=== PATIENT | female | born 2000 | race Caucasian/White ===

== ENCOUNTER 2024-06-21 12:28 | Emergency (ER) | payer MEDICAID, SELFPAY ==
--- NOTE | ~2024-06-21 | XR_ITS ---
EXAMINATION: XR CHEST CLINICAL INFORMATION: R rib pain COMPARISON: None available. TECHNIQUE: 2 views of the chest were obtained. FINDINGS: No significant abnormality is noted involving the heart, lungs, mediastinum, bony thorax or soft tissues. XR/XR chest 2V IMPRESSION: Unremarkable chest examination. Electronically signed by: Denis Villanueva MD 06/21/2024 01:31 PM [facility] [place]
--- NOTE | ~2024-06-21 | US_ITS ---
EXAMINATION: US ABDOMEN LIMITED CLINICAL INFORMATION: Right upper quadrant pain. COMPARISON: None available. TECHNIQUE: Real-time imaging of the right upper quadrant abdominal viscera. FINDINGS: PANCREAS: Visualized portions are unremarkable. LIVER: The liver is normal in size. The liver contour is normal. Parenchymal echogenicity is normal. No focal hepatic lesion. There is no intrahepatic biliary duct dilatation seen. GALLBLADDER: The gallbladder is physiologically distended without evidence of stones, sludge, polyps, wall thickening or pericholecystic fluid. COMMON BILE DUCT: Normal in caliber measuring 0.12 cm in diameter. RIGHT KIDNEY: No hydronephrosis. No renal calculi or focal parenchymal lesions. The kidney measures 8.9 cm in maximum dimension. FREE FLUID: None. US/US abdomen limited IMPRESSION: Unremarkable limited ultrasound abdomen. Electronically signed by: Denis Villanueva MD 06/21/2024 02:47 PM EST
[2024-06-21 13:04] VITALS: BP 117/72; PULSE 100; RESP 19; TEMP 36.6; O2SAT 100; BMI 28.3
--- NOTE | 2024-06-21 13:04 | ED.GENADULT ---
HPI - General Adult General Chief complaint: General Medical Stated complaint: R flank pain Time Seen by Provider: 06/21/24 16:44 History of Present Illness HPI narrative: Patient complains of right rib and upper back pain for the last several days, pain is worse with a deep breath, no other chest pain no nausea vomiting, pain is continuous worst with movement She has no palpitations, no nausea vomiting or diarrhea, no dysuria no blood in the urine, no numbness or weakness, pain does not radiate, she is eating normally drinking normally, denies any leg swelling Related Data Previous Rx's ?Medication ?Instructions ?Recorded acetaminophen 500 mg tablet 1,000 mg (2 x 500 mg) PO QID PRN 06/21/24 pain #30 tabs ibuprofen 600 mg tablet 600 mg PO Q6H PRN pain #20 tabs 06/21/24 lorazepam 0.5 mg tablet (Ativan) 0.5 mg PO BID PRN anxiety #10 tabs 06/21/24 Allergies Allergy/AdvReac Type Severity Reaction Status Date / Time No Known Allergies Allergy Verified 06/21/24 13:07 [facility] Past Medical History Source: nursing notes reviewed Social History Social History Advance Directives: No Advance Directives Information Provided: No Do you have a plan to hurt others: No Plan Physical Exam ED Vital Signs: Vital Signs - 24 hr 06/21/24 13:04 06/21/24 16:56 06/21/24 19:06 Temperature 98 F 98.4 F 98.4 F Pulse Rate 100 59 59 Respiratory Rate 19 16 16 Blood Pressure 117/72 95/54 L 95/54 L Pulse Oximetry 100 99 99 Oxygen Delivery Method Room Air Room Air Room Air BMI result Body Mass Index 28.3 General appearance comfortable no distress Head is normocephalic atraumatic Eyes pupils equal round reactive to light extraocular motions are intact Neck is supple and nontender The chest is clear to auscultation bilateral full symmetrical breath sounds Deep breath does produce pain in the right upper back Heart no murmur Chest wall did have some right sub axilla tenderness as well as some right low rib tenderness and right lateral rib tenderness The back there is no focal bony tenderness but there was tenderness subscapular and right upper posterior back, no CVA tenderness Extremities full range of motion times Skin no rashes Neuro gait balance are normal, motor is 5/5 x4, sensation intact and symmetrical, interaction comprehension and expression are normal, cranial nerves 2-12 intact as tested Course Course Course Narrative: 23 yo female with no PMH no OCPs, no recent travel or procedures, no trauma to the chest wall, mild recent URI with cough pain x 1 month on and off not get better. Had xray recently at [facility] before [facility] was told it was a muscle but it is not getting better. At this time basic labs, CXR, EKG, ddimer pleuritic pain HR > 105, has mild RUQ pain limited abd US ordered. No risk factors for ACS, or PE this is a RAPID medical screening exam the rest of the history and physical exam is to be done by the main provider. Patient with reproducible right upper back and lateral rib discomfort reproduced with movement and palpation EKG was sinus rhythm rate 66 with short AL of 108, QT was normal, no acute ischemic change Chest x-ray was normal Right upper quadrant ultrasound was normal with no evidence of gallstones or cholecystitis Hematology CBC was normal D-dimer was normal at 01:50, troponin was 2.7 normal, chemistry was without significant abnormality Well-appearing patient with reproducible pain is discharge diagnosis muscle pain, possible costochondritis Medications Administered Discontinued Medications Generic Name Dose Route Start Last Admin Trade Name Freq PRN Reason Stop Dose Admin Acetaminophen 975 mg 06/21/24 18:50 06/21/24 19:04 Acetaminophen 325 Mg Tablet PO 06/21/24 18:51 975 mg ONCE ONE Administration Ketorolac Tromethamine 30 mg 06/21/24 18:50 06/21/24 19:02 Ketorolac Tromethamine 30 Mg/Ml Vial IM 06/21/24 18:51 30 mg ONCE ONE Administration Lorazepam 1 mg 06/21/24 18:50 06/21/24 19:05 Lorazepam 1 Mg Tablet PO 06/21/24 18:51 1 mg ONCE ONE Administration Medical Decision Making Lab Data MDM Lab Attestation statement: I reviewed the patient's lab results. 06/21/24 14:04 06/21/24 14:04 Labs: Lab Results 06/21/24 06/21/24 Range/Units 14:04 17:47 WBC 5.8 (4.8-10.8) X10*3/uL RBC 4.14 L (4.20-5.50) X10*6/uL Hgb 12.9 (12.0-16.0) g/dl Hct 37.3 (37.0-47.0) % MCV 90.1 (80.0-98.0) fL MCH 31.2 (27.0-33.0) pg MCHC 34.6 (31.0-35.0) g/dl RDW 12.3 (11.0-16.0) % Plt Count 254 (160-400) X10*3/uL MPV 10.4 (9.4-12.3) fL Immature Gran % (Auto) 0.2 (0.0-0.4) % Neut % (Auto) 58.2 (45-73) % Lymph % (Auto) 32.9 (20-40) % [place] % (Auto) 7.1 (2-11) % Eos % (Auto) 0.9 (0-4) % Baso % (Auto) 0.7 (0-2) % Lymph # (Auto) 1.9 (1.2-4.9) X10*3/uL [place] # (Auto) 0.4 (0.1-1.2) X10*3/uL Eos # (Auto) 0.1 (0.0-0.4) X10*3/uL Baso # (Auto) 0.0 (0.0-0.2) X10*3/uL Abs Immat Gran (auto) 0.01 (0.00-0.03) X10*3/uL Absolute Neuts (auto) 3.4 (2.0-8.3) x10*3/uL Absolute Nucleated RBC 0.000 (0.0-0.012) X10*3/uL Nucleated RBC % (auto) 0.0 (0.0-0.2) /100WBC D-Dimer High Sensitivty < 150 NG/ML Sodium 140 (135-145) mmol/L Potassium 4.1 (3.3-5.1) mmol/L Chloride 113 H (96-108) mmol/L Carbon Dioxide 22 (22-29) mmol/L Anion Gap 9 L (12-20) BUN 14 (9-16) mg/dL Creatinine 0.79 (0.5-1.4) mg/dL Estim Creat Clear Calc 91.2 Estimated GFR > 60 Random Glucose 96 (60-115) mg/dL Calcium 9.1 (8.4-10.2) mg/dL Magnesium 1.8 (1.6-2.6) mg/dL Total Bilirubin 1.1 H (0.0-1.0) mg/dL Direct Bilirubin 0.4 (0.0-0.5) mg/dL AST 20 (5-31) U/L ALT 17 (0-31) U/L Alkaline Phosphatase 52 (39-117) U/L Troponin I High Sens < 2.7 (<3.5-17.0) ng/L Total Protein 6.8 (6.5-8.0) g/dL Albumin 4.2 (3.5-5.0) g/dL Lipase 9 (8-78) U/L Beta HCG, Quant < 2 mIU/mL Urine Color Dark Yellow Urine Appearance Cloudy Urine pH 6.0 (5.0-9.0) Ur Specific [place] 1.025 (1.005-1.025) Urine Protein Trace (Neg-Trace) mg/dL Urine Glucose (UA) Negative (Negative) mg/dL Urine Ketones Trace (Negative) mg/dL Urine Blood Negative (Negative) Urine Nitrite Negative (Negative) Ur Leukocyte Esterase Small (1+) H (Negative) Urine RBC 0-2 (0-2) /HPF Urine WBC 0-5 (0-5) /HPF Ur Squamous Epith Cells >20 (0-2) /HPF Urine Bacteria 4+ (None Seen) Hyaline Casts 3-5 (0-2) /LPF Granular Casts Present Discharge Plan Discharge Clinical Impression: Muscle pain, Costochondritis, Anxiety Patient Disposition: Home, Self-Care Additional Instructions: The big workup done today did not reveal any dangerous or worrisome condition EKG was normal, ultrasound of her right upper abdomen was normal, test for blood clot was normal, chest x-ray was normal, labs were normal Your physical exam was consistent with either muscle strain or inflamed cartilage, costochondritis, in the ribcage Another thought is anxiety can certainly cause all kinds of pains so we tried an Ativan which is an acute anxiety medicine here in the ER, if was helpful you can use it occasionally when you feel anxiety is strong, but it can make you sleepy so do not use it when your working or driving Tylenol or Motrin may be helpful and can be used and accommodation Follow with your doctor Return any time any worse condition or concerns Prescriptions: New ibuprofen 600 mg tablet 600 mg PO Q6H PRN (Reason: pain) Qty: 20 0RF acetaminophen 500 mg tablet 1,000 mg PO QID PRN (Reason: pain) Qty: 30 0RF lorazepam [Ativan] 0.5 mg tablet 0.5 mg PO BID PRN (Reason: anxiety) Qty: 10 0RF Stand Alone Forms: Work/School Release Interventions: ED Discharge Assessment Last Done: 06/21/24 19:06 Discharge Date/Time: 06/21/24 19:07 Print Language: [place]i
--- NOTE | 2024-06-21 13:07 | ECG_ITS ---
Test Reason : FLANK PAIN Blood Pressure : / mmHG Vent. Rate : 066 BPM Atrial Rate : 066 BPM P-R Int : 108 ms QRS Dur : 084 ms QT Int : 388 ms P-R-T Axes : 041 034 043 degrees QTc Int : 406 ms Sinus rhythm with short OR Otherwise normal ECG No previous ECGs available Referred By: Arleen Tsai Electronically Signed By:RAY ROSS MD
[2024-06-21 14:09] LABS: MANUAL DIFF FLAG NO
[2024-06-21 14:13] LABS: Basophils Percent Auto 0.7 % (0-2); Eosinophils Absolute Auto 0.1 X10*3/uL (0.0-0.4); Eosinophils Percent Auto 0.9 % (0-4); Hematocrit 37.3 % (37.0-47.0); Hemoglobin 12.9 g/dl (12.0-16.0); Imm Gran Abs Auto 0.01 X10*3/uL (0.00-0.03); Imm Gran Pct Auto 0.2 % (0.0-0.4); Lymphocytes Absolute Auto 1.9 X10*3/uL (1.2-4.9); Lymphocytes Percent Auto 32.9 % (20-40); Mean Corpuscular HGB Conc 34.6 g/dl (31.0-35.0); Mean Corpuscular Hemoglobin 31.2 pg (27.0-33.0); Mean Corpuscular Volume 90.1 fL (80.0-98.0); Mean Platelet Volume 10.4 fL (9.4-12.3); Monocytes Absolute Auto 0.4 X10*3/uL (0.1-1.2); Monocytes Percent Auto 7.1 % (2-11); Neutrophils Absolute Auto 3.4 x10*3/uL (2.0-8.3); Neutrophils Percent Auto 58.2 % (45-73); Platelet Count 254 X10*3/uL (160-400); Red Blood Count 4.14 X10*6/uL (4.20-5.50); Red Cell Distribution Width 12.3 % (11.0-16.0); White Blood Count 5.8 X10*3/uL (4.8-10.8)
[2024-06-21 14:20] LABS: D Dimer High Sensitivity < 150 NG/ML
[2024-06-21 14:32] LABS: Alanine Aminotransferase 17 U/L (0-31); Albumin Level 4.2 g/dL (3.5-5.0); Alkaline Phosphatase 52 U/L (39-117); Anion Gap 9 (12-20); Aspartate Amino Transferase 20 U/L (5-31); Bilirubin Direct 0.4 mg/dL (0.0-0.5); Bilirubin Total 1.1 mg/dL (0.0-1.0); Blood Urea Nitrogen 14 mg/dL (9-16); Calcium 9.1 mg/dL (8.4-10.2); Carbon Dioxide 22 mmol/L (22-29); Chloride 113 mmol/L (96-108); Creatinine Clr Calc Pharmacy 91.2; Estimated Glomerular Filt Rate > 60; Glucose Random 96 mg/dL (60-115); Lipase 9 U/L (8-78); Magnesium 1.8 mg/dL (1.6-2.6); Potassium 4.1 mmol/L (3.3-5.1); Sodium 140 mmol/L (135-145); Total Protein 6.8 g/dL (6.5-8.0); Troponin-I High Sensitivity < 2.7 ng/L (<3.5-17.0)
[2024-06-21 14:34] LABS: HCG Quantitative < 2 mIU/mL
[2024-06-21 16:56] VITALS: BP 95/54; PULSE 59; RESP 16; TEMP 36.9; O2SAT 99
[2024-06-21 18:02] LABS: Appearance Urine Cloudy; Color Urine Dark Yellow; Glucose Urine UA Negative (Negative); Leukocyte Esterase Urine Small (1+) (Negative); Nitrite Urine Negative (Negative); Specific Gravity - Urine 1.025 (1.005-1.025); UMIC TRIGGER UACC YES; Urine Blood Negative (Negative); Urine Ketones Trace mg/dL (Negative); Urine Protein Trace mg/dL (Neg-Trace)
[2024-06-21 18:16] LABS: Bacteria Urine 4+ (None Seen); Granular Casts Urine Present; RBC Urine 0-2 /HPF (0-2); Squamous Epithelial Cell Urine >20 /HPF (0-2); UACC Culture Trigger YES; WBC Urine 0-5 /HPF (0-5)
[2024-06-21] MEDS: Ketorolac Tromethamine 30 MG/ML VIAL IM (19:02)
[2024-06-21] MEDS: Acetaminophen 325 MG TABLET 975 MG PO (19:04)
[2024-06-21] MEDS: LORazepam 1 MG TABLET PO (19:05)
[2024-06-21 19:06] VITALS: BP 95/54; PULSE 59; RESP 16; TEMP 36.9; O2SAT 99
== END 2024-06-21 19:07 | disposition home or self-care (01) ==
PROVIDERS: Emergency Medicine; Emergency Provider Emergency Medicine
DX: M79.18 Myalgia, other site (principal); M94.0 Chondrocostal junction syndrome [Tietze]; F41.9 Anxiety disorder, unspecified; R10.11 Right upper quadrant pain
CPT/HCPCS: 36415; 71046; 76705; 80048; 80076; 81001; 83690; 83735; 84484; 84702; 85025; 85379; 87086; 93005; 96372; 99284; J1885

== ENCOUNTER → 2024-06-21 13:07 | Outpatient (BNV) | payer OTHER, SELFPAY | PROVIDERS: Visit Provider Radiology Diagnostic Radiology | DX: R10.11 Right upper quadrant pain (principal); R07.82 Intercostal pain | CPT/HCPCS: 71046; 76705 ==

== ENCOUNTER → 2024-06-21 13:07 | Outpatient (BNV) | payer OTHER, SELFPAY | PROVIDERS: Emergency Provider Emergency Medicine; Visit Provider Internal Medicine Cardiovascular Disease | DX: R10.9 Unspecified abdominal pain (principal) | CPT/HCPCS: 93010 ==